=== PATIENT | male | born 1955 | race Two or more races ===

== ENCOUNTER 2022-04-07 09:45 | Emergency (ER) | payer OTHER ==
[~2022-04-07] VITALS: Ht 172.7 cm; Wt 77.4 kg
[2022-04-07 09:46] VITALS: BP 106/55
[2022-04-07] MEDS ORDERED: QC A650T3 PO (10:19)
[2022-04-07 10:59] VITALS: O2SAT 95
[2022-04-07] MEDS ORDERED: NIRMATRELVIR/RITONAVIR CO-PACK (EMERGENCY USE AUTH) PO SCH ×2 (12:15→21:00)
[2022-04-07] MEDS ORDERED: ALBUTEROL 90 MCG/ACT 8GM HFA INHALER INH PRN (13:15)
[2022-04-07] MEDS ORDERED: EPINEPHrine INJ 1 MG/ML 1ML AMP IM PRN (13:15)
[2022-04-07] MEDS ORDERED: diphenhydrAMINE 50MG/ML VIAL (J1200) IV PRN (13:15)
[2022-04-07] MEDS ORDERED: methylPREDNISolone 125MG 2ML VIAL IV PRN (13:15)
[2022-04-07] MEDS ORDERED: BEBTELOVIMAB 175MG 2ML VIAL (EUA) IV ONE (13:15)
== END 2022-04-07 13:00 | disposition home or self-care (01) ==
LOC: M ED 09:45
DX: U07.1 COVID-19 (principal); I10 Essential (primary) hypertension; Z87.01 Personal history of pneumonia (recurrent); J84.10 Pulmonary fibrosis, unspecified; Z95.5 Presence of coronary angioplasty implant and graft

== ENCOUNTER 2022-04-07 13:45 | Outpatient (CLI) | payer OTHER ==
[~2022-04-07] VITALS: Ht 172.7 cm; Wt 75.0 kg
[~2022-04-07 13:45] MED LIST: QC A650T3 PO
[2022-04-07 13:51] VITALS: BP 140/76
[2022-04-07] MEDS ORDERED: ALBUTEROL 90 MCG/ACT 8GM HFA INHALER INH PRN (14:00)
[2022-04-07] MEDS ORDERED: ALBUTEROL SULFATE 2.5 MG/0.5 ML INH NEB SOLN INH PRN (14:00)
[2022-04-07] MEDS ORDERED: EPINEPHrine INJ 1 MG/ML 1ML AMP IM PRN (14:00)
[2022-04-07] MEDS ORDERED: diphenhydrAMINE 50MG/ML VIAL (J1200) IV PRN (14:00)
[2022-04-07] MEDS ORDERED: methylPREDNISolone 125MG 2ML VIAL IV PRN (14:00)
[2022-04-07 14:20] VITALS: BP 140/76
[2022-04-07 14:46] VITALS: BP_SYST 11; BP_SYST 119; BP_DIAS 66
[2022-04-07] MEDS ORDERED: BEBTELOVIMAB 175MG 2ML VIAL (EUA) IV ONE (15:00)
[2022-04-07 15:21] VITALS: BP 139/65
== END 2022-04-07 15:27 | disposition home or self-care (01) ==
LOC: M 4MAIN 13:45 → M OPCLI4 13:45
PROVIDERS: ATTEND Emergency Medicine
DX: U07.1 COVID-19 (principal)